=== PATIENT | female | born 1990 | race African-American/Black ===

== ENCOUNTER 2024-05-12 14:38 | Emergency (ER) | payer MEDICAID ==
[~2024-05-12] VITALS: Ht 157.5 cm; Wt 105.7 kg
[2024-05-12 15:52] LABS: BASOPHILS # (AUTO) 0.1 X10'3 (0-0.2); BASOPHILS % (AUTO) 1.3 % (0-1); EOSINOPHILS # (AUTO) 0.1 X10'3 (0-0.9); HEMOGLOBIN 11.7 g/dl (12.0-16.0); MEAN CORPUSCULAR HEMOGLOBIN 22.3 PG (27.0-31.0); MEAN CORPUSCULAR HGB CONC 31.5 g/dL (33.0-36.5); MEAN CORPUSCULAR VOLUME 70.8 FL (78-98); MEAN PLATELET VOLUME 8.6 FL (7.4-10.4); MONOCYTES # (AUTO) 0.5 X10'3 (0-0.9); MONOCYTES % (AUTO) 6.1 % (2-12); NEUTROPHILS # (AUTO) 4.6 X10'3 (1.8-7.7); NEUTROPHILS % (AUTO) 55.6 % (42-75); PLATELET COUNT 207 X10'3 (140-440); RED BLOOD COUNT 5.23 X10'6 (4.20-5.60); RED CELL DISTRIBUTION WIDTH 21.9 % (11.5-14.5); WHITE BLOOD COUNT 8.3 X10'3 (4.5-11.0)
[2024-05-12 16:04] LABS: BILIRUBIN,URINE NEGATIVE (Neg); CLARITY,URINE CLEAR (Clear); COLOR,URINE STRAW (Yellow); GLUCOSE, URINE NEGATIVE (Neg); KETONES,URINE NEGATIVE (Neg); LEUKOCYTE ESTERASE ,URINE TRACE (Neg); NITRITES, URINE NEGATIVE (Neg); OCCULT BLOOD,URINE NEGATIVE (Neg); PH,URINE 6.5 (4.8-8.0); PROTEIN,URINE NEGATIVE (Neg); UROBILINOGEN,URINE 0.2 E.U/dL (0.2-1.0)
[2024-05-12 16:05] LABS: UA COLLECTION TYPE CLN CATCH MIDSTREAM
[2024-05-12 16:10] LABS: ALANINE AMINOTRANSFERASE 21 U/L (12-78); ALBUMIN 3.4 G/DL (3.4-5.0); ALBUMIN/GLOBULIN RATIO 0.7 (1.1-1.5); ALKALINE PHOSPHATASE 131 IU/L (46-116); ANION GAP 10 (8-16); ASPARTATE AMINO TRANSFERASE 12 U/L (10-37); BILIRUBIN,TOTAL 0.2 MG/DL (0.1-1.0); BLOOD UREA NITROGEN 12 MG/DL (7-18); BUN/CREATININE RATIO 12.8 (10.0-20.0); CALCIUM 9.4 MG/DL (8.5-10.1); CHLORIDE 106 MMOL/L (99-107); CREATININE 0.94 MG/DL (0.40-0.90); GLUCOSE 93 MG/DL (70-104); POTASSIUM 3.8 MMOL/L (3.5-5.1); SODIUM 140 MMOL/L (135-145); TOTAL CARBON DIOXIDE 24.5 MMOL/L (24-32); eCRCL 67 ML/MIN; eGFR 69 ML/MIN
[2024-05-12 16:10] LABS: URINE AMPHETAMINE SCREEN NEGATIVE (Neg); URINE BARBITUATE SCREEN NEGATIVE (Neg); URINE BENZODIAZEPINES SCREEN NEGATIVE (Neg); URINE CANNABINOID SCREEN NEGATIVE (Neg); URINE COCAINE SCREEN NEGATIVE (Neg); URINE METHADONE SCREEN NEGATIVE (Neg); URINE OPIATE SCREEN NEGATIVE (Neg); URINE PHENCYCLIDINE SCREEN NEGATIVE (Neg)
[2024-05-12 16:14] LABS: BACTERIA,URINE FEW /HPF (Neg); MUCUS STRANDS NONE SEEN /LPF (Neg); RBC,URINE NONE SEEN /HPF (0-2); SQUAMOUS EPITHELIAL CELL,UR FEW /LPF (FEW); WBC,URINE 0-4 /HPF (0-4)
[2024-05-12 16:19] LABS: PLATELET ESTIMATE NORMAL
[2024-05-12 16:20] LABS: ANISOCYTOSIS 3+; ELLIPTOCYTES FEW; HYPOCHROMASIA 1+; MICROCYTOSIS 1+; POLYCHROMASIA 1+
[2024-05-12] MEDS: normal saline 1000ml 1,000 ML IV ONE (16:25)
[2024-05-12] MEDS: LORazepam 1 MG tablet PO ONE (19:11)
[2024-05-12] MEDS: ondansetron/PF 4mg/2ml inj IV ONE (19:41)
[2024-05-12] MEDS: HYDROmorphone 1 mg/ml syringe IV ONE (19:41)
[2024-05-12] MEDS: levetiracetam inj 1,500 MG in normal saline 100ml IV soln 100 ML IV SCH (22:51)
[2024-05-13 04:11] VITALS: BP 117/62; PULSE 70; RESP 18; TEMP 97.3; O2SAT 98
== END 2024-05-13 04:21 | disposition short-term general hospital (02) ==
LOC: ER 14:39
DX: T85.09XA Other mechanical complication of ventricular intracranial (communicating) shunt, initial encounter (principal); R56.9 Unspecified convulsions; Z91.09 Other allergy status, other than to drugs and biological substances
CPT/HCPCS: 36415; 70450; 80053; 80305; 81001; 82948; 85008; 85025; 87088; 93005; 96361; 96365; 96375; 99291; J1170; J1953; J2405; J7030; A6258; A6449

== ENCOUNTER 2024-05-19 18:41 | Emergency (ER) | payer MEDICAID ==
[~2024-05-19] VITALS: Ht 165.1 cm; Wt 97.6 kg
[2024-05-19] MEDS: LORazepam 2 mg/ml vial IV ONE (19:20)
[2024-05-19] MEDS: ketorolac trometh 30MG/ML vial 30 MG/ML VIAL IV ONE (19:20)
[2024-05-19] MEDS: normal saline 1000ml 1,000 ML IV ONE (19:25)
[2024-05-19 19:34] LABS: BASOPHILS % (AUTO) 0.2 % (0-1); EOSINOPHILS # (AUTO) 0.1 X10'3 (0-0.9); HEMATOCRIT 36.2 % (35.0-45.0); HEMOGLOBIN 11.6 g/dl (12.0-16.0); LYMPHOCYTES # (AUTO) 2.8 X10'3 (1.1-4.8); LYMPHOCYTES % (AUTO) 29.5 % (21-51); MEAN CORPUSCULAR HGB CONC 31.9 g/dL (33.0-36.5); MEAN CORPUSCULAR VOLUME 72.1 FL (78-98); MEAN PLATELET VOLUME 8.7 FL (7.4-10.4); MONOCYTES # (AUTO) 0.5 X10'3 (0-0.9); MONOCYTES % (AUTO) 5.5 % (2-12); NEUTROPHILS % (AUTO) 63.8 % (42-75); PLATELET COUNT 216 X10'3 (140-440); RED BLOOD COUNT 5.02 X10'6 (4.20-5.60); RED CELL DISTRIBUTION WIDTH 21.1 % (11.5-14.5); WHITE BLOOD COUNT 9.5 X10'3 (4.5-11.0)
[2024-05-19 19:49] LABS: ALANINE AMINOTRANSFERASE 22 U/L (12-78); ALBUMIN 3.3 G/DL (3.4-5.0); ALBUMIN/GLOBULIN RATIO 0.7 (1.1-1.5); ALKALINE PHOSPHATASE 120 IU/L (46-116); ANION GAP 13 (8-16); ASPARTATE AMINO TRANSFERASE 13 U/L (10-37); BILIRUBIN,TOTAL 0.1 MG/DL (0.1-1.0); BLOOD UREA NITROGEN 18 MG/DL (7-18); BUN/CREATININE RATIO 15.4 (10.0-20.0); CALCIUM 9.1 MG/DL (8.5-10.1); CHLORIDE 103 MMOL/L (99-107); CREATININE 1.17 MG/DL (0.40-0.90); GLUCOSE 136 MG/DL (70-104); POTASSIUM 3.7 MMOL/L (3.5-5.1); SODIUM 140 MMOL/L (135-145); TOTAL CARBON DIOXIDE 24.4 MMOL/L (24-32); TOTAL PROTEIN 7.9 G/DL (6.4-8.2); eCRCL 62 ML/MIN; eGFR 64 ML/MIN
[2024-05-19 19:56] LABS: URINE HCG NEGATIVE (NEG)
[2024-05-19 19:58] LABS: BILIRUBIN,URINE NEGATIVE (Neg); CLARITY,URINE CLEAR (Clear); COLOR,URINE STRAW (Yellow); GLUCOSE, URINE NEGATIVE (Neg); KETONES,URINE NEGATIVE (Neg); LEUKOCYTE ESTERASE ,URINE NEGATIVE (Neg); NITRITES, URINE NEGATIVE (Neg); OCCULT BLOOD,URINE NEGATIVE (Neg); PROTEIN,URINE NEGATIVE (Neg); UROBILINOGEN,URINE 0.2 E.U/dL (0.2-1.0)
[2024-05-19 20:02] LABS: UA COLLECTION TYPE CLN CATCH MIDSTREAM
[2024-05-19 20:16] LABS: ANISOCYTOSIS 3+; HYPOCHROMASIA 1+; MICROCYTOSIS 1+; PLATELET ESTIMATE NORMAL
[2024-05-19 20:17] LABS: POLYCHROMASIA 1+
[2024-05-19 20:18] LABS: ELLIPTOCYTES FEW
[2024-05-19 20:19] LABS: LARGE PLATELETS FEW
[2024-05-19 21:29] VITALS: BP 138/98; PULSE 87; RESP 20; TEMP 98.2; O2SAT 96
== END 2024-05-19 21:32 | disposition home or self-care (01) ==
LOC: ER 18:42
DX: R56.9 Unspecified convulsions (principal); Z91.09 Other allergy status, other than to drugs and biological substances
CPT/HCPCS: 36415; 70450; 80053; 81003; 81025; 85008; 85025; 96361; 96374; 96375; 99285; J1885; J2060; J7030

== ENCOUNTER 2024-11-16 21:31 | Emergency (ER) | payer MEDICAID ==
[~2024-11-16] VITALS: Ht 162.6 cm; Wt 89.5 kg
[2024-11-16 22:20] LABS: BILIRUBIN,URINE NEGATIVE (Neg); CLARITY,URINE CLEAR (Clear); COLOR,URINE YELLOW (Yellow); GLUCOSE, URINE NEGATIVE (Neg); KETONES,URINE NEGATIVE (Neg); LEUKOCYTE ESTERASE ,URINE NEGATIVE (Neg); NITRITES, URINE NEGATIVE (Neg); OCCULT BLOOD,URINE TRACE-INTACT (Neg); PROTEIN,URINE NEGATIVE (Neg); UROBILINOGEN,URINE 0.2 E.U/dL (0.2-1.0)
[2024-11-16 22:21] LABS: URINE HCG NEGATIVE (NEG)
[2024-11-16 22:22] LABS: UA COLLECTION TYPE VOIDED
[2024-11-16 22:26] LABS: BACTERIA,URINE NONE SEEN /HPF (Neg); RBC,URINE 0-2 /HPF (0-2); SQUAMOUS EPITHELIAL CELL,UR NONE SEEN /LPF (FEW); WBC,URINE NONE SEEN /HPF (0-4)
[2024-11-16] MEDS: normal saline 1000ml 1,000 ML IV ONE (22:44)
[2024-11-16] MEDS: ondansetron/PF 4mg/2ml inj IV ONE (22:44)
[2024-11-16] MEDS: morphine 4 MG/ML inj SYRINge IV ONE (22:45)
[2024-11-16 22:58] LABS: BASOPHILS # (AUTO) 0.1 X10'3 (0-0.2); BASOPHILS % (AUTO) 0.9 % (0-1); EOSINOPHILS # (AUTO) 0.1 X10'3 (0-0.9); EOSINOPHILS % (AUTO) 0.9 % (0-6); HEMATOCRIT 40.4 % (35.0-45.0); HEMOGLOBIN 13.1 g/dl (12.0-16.0); LYMPHOCYTES # (AUTO) 3.4 X10'3 (1.1-4.8); LYMPHOCYTES % (AUTO) 31.5 % (21-51); MEAN CORPUSCULAR HEMOGLOBIN 26.2 PG (27.0-31.0); MEAN CORPUSCULAR HGB CONC 32.5 g/dL (33.0-36.5); MEAN CORPUSCULAR VOLUME 80.8 FL (78-98); MEAN PLATELET VOLUME 8.8 FL (7.4-10.4); MONOCYTES # (AUTO) 0.6 X10'3 (0-0.9); MONOCYTES % (AUTO) 5.4 % (2-12); NEUTROPHILS # (AUTO) 6.6 X10'3 (1.8-7.7); NEUTROPHILS % (AUTO) 61.3 % (42-75); PLATELET COUNT 224 X10'3 (140-440); RED CELL DISTRIBUTION WIDTH 16.5 % (11.5-14.5); WHITE BLOOD COUNT 10.8 X10'3 (4.5-11.0)
[2024-11-16 23:11] LABS: ALANINE AMINOTRANSFERASE 25 U/L (12-78); ALBUMIN 3.3 G/DL (3.4-5.0); ALBUMIN/GLOBULIN RATIO 0.7 (1.1-1.5); ALKALINE PHOSPHATASE 140 IU/L (46-116); ANION GAP 9 (8-16); ASPARTATE AMINO TRANSFERASE 20 U/L (10-37); BILIRUBIN,TOTAL 0.2 MG/DL (0.1-1.0); BLOOD UREA NITROGEN 16 MG/DL (7-18); BUN/CREATININE RATIO 19.3 (10.0-20.0); CALCIUM 9.1 MG/DL (8.5-10.1); CHLORIDE 105 MMOL/L (99-107); CREATININE 0.83 MG/DL (0.40-0.90); GLUCOSE 98 MG/DL (70-104); LIPASE 41 U/L (16-77); POTASSIUM 3.7 MMOL/L (3.5-5.1); SODIUM 137 MMOL/L (135-145); TOTAL CARBON DIOXIDE 23.1 MMOL/L (24-32); TOTAL PROTEIN 7.9 G/DL (6.4-8.2); eCRCL 83 ML/MIN; eGFR > 90 ML/MIN
[2024-11-17] MEDS ORDERED: DICY20TA17 PO (00:12)
[2024-11-17 00:16] VITALS: BP 144/80; PULSE 60; RESP 15; TEMP 97.3; O2SAT 100
== END 2024-11-17 00:28 | disposition home or self-care (01) ==
LOC: ER 21:32
DX: R10.84 Generalized abdominal pain (principal); Z91.041 Radiographic dye allergy status
CPT/HCPCS: 36415; 80053; 81001; 81025; 83690; 85025; 96361; 96374; 96375; 99284; J2270; J2405; J7030